=== PATIENT | female | born 1970 | race Two or more races ===

== ENCOUNTER → 2017-08-14 | Outpatient (CLI) | payer BC ==
[~2017-08-14] MED LIST: LEV50T PO
[2017-08-14 08:48] LABS: Urine RBC None Seen /hpf (0 - 4)
[2017-08-14 08:58] LABS: Basophils # (auto) 0 uL; Basophils % (auto) 0.6 % (0.0-2.0); Eosinophils # (auto) 0.2 uL; Hematocrit 42.1 % (36.0-46.0); Lymphocytes # (auto) 1.7 uL; Lymphocytes % (auto) 32.2 % (10.0-50.0); Mean Corpuscular Hgb Conc. 33.1 g/dL (32.0-36.0); Mean Corpuscular Volume 90.4 fL (80.0-100.0); Monocytes # (auto) 0.4 uL; Neutrophils # (auto) 2.9 uL; Neutrophils % (auto) 56.2 % (37.0-80.0); Nucleated Red Blood Cells % 0.1 %; Platelet Count (auto) 266 10^3/uL (140-450); White Blood Cell 5.2 10^3/uL (4.4-10.8)
[2017-08-14 09:20] LABS: Urine Bilirubin Negative (Negative); Urine Blood Negative /uL (Negative); Urine Color Yellow (Yellow); Urine Glucose Normal (Normal); Urine Ketone Negative (Negative); Urine Mucus FEW (None Seen); Urine Nitrite Negative (Negative); Urine Squamous Epithelial Cell FEW /hpf (<5); Urine Urobilinogen Normal (Negative); Urine pH 5.5 (5.0-8.0)
[2017-08-14 09:28] LABS: Albumin 3.5 g/dL (3.4-5.0); BUN/Creatinine Ratio 15.6; Bilirubin, Total 0.4 mg/dL (0.2-1.0); Calcium 8.2 mg/dL (8.5-10.1); Potassium 3.8 mmol/L (3.5-5.1); Total Protein 7.3 g/dL (6.4-8.2)
== END | disposition home or self-care (01) ==
LOC: LAB 08:13
PROVIDERS: ATTEND Internal Medicine
DX: I10 Essential (primary) hypertension (principal); N39.0 Urinary tract infection, site not specified; E03.9 Hypothyroidism, unspecified; E78.2 Mixed hyperlipidemia
CPT/HCPCS: 36415; 80053; 80061; 81001; 84443; 85025

== ENCOUNTER 2019-05-10 06:20 | Day surgery (SDC) | payer BC ==
[2019-05-06 11:36] LABS: Basophils # (auto) 0 uL; Basophils % (auto) 0.6 % (0.0-2.0); Eosinophils # (auto) 0.2 uL; Eosinophils % (auto) 3.2 % (0.0-7.0); Hematocrit 43.9 % (36.0-46.0); Hemoglobin 14.1 g/dL (12.2-16.2); Lymphocytes # (auto) 1.5 uL; Lymphocytes % (auto) 30.1 % (10.0-50.0); Mean Corpuscular Hemoglobin 29.2 pg (28.0-32.0); Mean Corpuscular Hgb Conc. 32.3 g/dL (32.0-36.0); Mean Corpuscular Volume 90.4 fL (80.0-100.0); Monocytes # (auto) 0.3 uL; Monocytes % (auto) 6.8 % (0.0-12.0); Neutrophils % (auto) 59.3 % (37.0-80.0); Nucleated Red Blood Cells % 0.1 %; Platelet Count (auto) 291 10^3/uL (140-450); Red Blood Cells 4.85 10^6/uL (4.0-5.20); Red Cell Distribution Width 13.5 % (11.8-14.3)
[2019-05-06 11:49] LABS: Albumin 3.5 g/dL (3.4-5.0); BUN/Creatinine Ratio 16.7; Calcium 8.5 mg/dL (8.5-10.1); Potassium 4.4 mmol/L (3.5-5.1)
[2019-05-06 11:52] LABS: Bilirubin, Total 0.4 mg/dL (0.2-1.0); Total Protein 7.5 g/dL (6.4-8.2)
[2019-05-06 12:09] LABS: INR < 0.93 (0.9-1.15); Partial Thromboplastin Time 25.9 sec (23.64-32.05)
[2019-05-06 12:34] LABS: Urine Bacteria NONE SEEN /hpf (None Seen); Urine Blood 2+ /uL (Negative); Urine Specific Gravity 1.012 (1.001-1.035); Urine WBC 21 /hpf (0 - 5)
[~2019-05-10] VITALS: Ht 177.8 cm; Wt 99.8 kg
[~2019-05-10 06:20] MED LIST changes: -LEV50T PO; +LEVO25TA6 PO
[2019-05-10] MEDS ORDERED: ceFAZolin 1GM/50ML 50 ML IV ONE (07:07)
[2019-05-10] MEDS ORDERED: ceFAZolin 1GM VL ONE (07:11)
[2019-05-10] MEDS ORDERED: MIDAZOLAM HCL 1MG/1ML-2 ML VIAL ONE (07:32)
[2019-05-10] MEDS ORDERED: fentaNYL CITRATE 100 MCG/2 ML VL ONE (07:32)
[2019-05-10] MEDS ORDERED: MEPERIDINE HCL (25 MG/ML) 1ML VIAL ONE ×2 (07:32→08:01)
[2019-05-10] MEDS ORDERED: DexAMETHasone SOD PHOS 10MG/1ML VIAL INJ ONE (07:59)
[2019-05-10] MEDS ORDERED: PROPOFOL 10 MG/ML 20 ML IV ONE (07:59)
[2019-05-10] MEDS ORDERED: ePHEDrine SULFATE 50 MG/ML AMP IV PRN (08:00)
[2019-05-10] MEDS ORDERED: ONDANSETRON HCL 4 MG/2 ML VIAL IV ONE (08:00)
[2019-05-10] MEDS ORDERED: MORPHINE SULFATE 4 MG/ML SYR/VIAL IV ONE (08:00)
[2019-05-10] MEDS ORDERED: METOCLOPRAMIDE HCL 5MG/ml INJ 2ml VIAL IV ONE (08:00)
[2019-05-10] MEDS ORDERED: HYDROmorphone HCL 2 MG/ML VL IV PRN (08:00)
[2019-05-10] MEDS ORDERED: MIDAZOLAM HCL 1MG/1ML-2 ML VIAL IV PRN (08:00)
[2019-05-10] MEDS ORDERED: KETOROLAC TROMETH 15 mg/ml 1ML VL IV ONE (08:00)
[2019-05-10] MEDS ORDERED: LABETALOL HCL 5 MG/ML 4ML SYRINGE IV PRN (08:00)
[2019-05-10] MEDS ORDERED: ONDANSETRON HCL 4 MG/2 ML VIAL ONE (08:07)
[2019-05-10] MEDS ORDERED: KETOROLAC TROMETH 30 MG/ML 1ML VIAL ONE (08:07)
[2019-05-10] MEDS ORDERED: PHENYLEPHRINE HCL 10 MG/ML VL ONE (08:37)
[2019-05-13 09:31] VITALS: BP 127/67
== END 2019-05-10 10:46 | disposition home or self-care (01) ==
LOC: SUR 06:20
PROVIDERS: ATTEND Surgery Pediatric Surgery
DX: I83.892 Varicose veins of left lower extremity with other complications (principal); E66.8 Other obesity; E89.0 Postprocedural hypothyroidism; Z79.899 Other long term (current) drug therapy; Z68.31 Body mass index [BMI] 31.0-31.9, adult; Z98.890 Other specified postprocedural states
CPT/HCPCS: 36415; 37735; 80053; 81001; 84702; 85025; 85610; 85730; 88304; J0690; J1100; J1885; J2175; J2250; J2370; J2405; J2704; J3010

== ENCOUNTER 2020-01-03 19:34 | Emergency (ER) | payer BC ==
[~2020-01-03] VITALS: Ht 177.8 cm; Wt 93.0 kg
[2020-01-03 20:45] LABS: Urine WBC None Seen /hpf (0 - 5)
[2020-01-03 21:01] LABS: Urine Bacteria NONE SEEN /hpf (None Seen); Urine Blood Negative /uL (Negative); Urine Specific Gravity 1.008 (1.001-1.035)
[2020-01-03 21:35] LABS: Basophils # (auto) 0 uL; Basophils % (auto) 0.4 % (0.0-2.0); Eosinophils # (auto) 0.1 uL; Eosinophils % (auto) 1.4 % (0.0-7.0); Hematocrit 43.8 % (36.0-46.0); Hemoglobin 14.3 g/dL (12.2-16.2); Lymphocytes # (auto) 2.1 uL; Lymphocytes % (auto) 24.7 % (10.0-50.0); Mean Corpuscular Hemoglobin 29.2 pg (28.0-32.0); Mean Corpuscular Hgb Conc. 32.6 g/dL (32.0-36.0); Mean Corpuscular Volume 89.5 fL (80.0-100.0); Monocytes # (auto) 0.5 uL; Monocytes % (auto) 6.3 % (0.0-12.0); Neutrophils # (auto) 5.8 uL; Neutrophils % (auto) 67.2 % (37.0-80.0); Nucleated Red Blood Cells % 0.1 %; Platelet Count (auto) 302 10^3/uL (140-450); Red Blood Cells 4.89 10^6/uL (4.0-5.20); Red Cell Distribution Width 13.6 % (11.8-14.3); White Blood Cell 8.7 10^3/uL (4.4-10.8)
[2020-01-03 21:51] LABS: INR 0.94 (0.9-1.15); Partial Thromboplastin Time 25.3 sec (23.64-32.05)
[2020-01-03 21:52] LABS: Albumin 3.8 g/dL (3.4-5.0); Anion Gap 5 (5-15); Blood Urea Nitrogen 11 mg/dL (7-18); Calcium 8.4 mg/dL (8.5-10.1); Carbon Dioxide 27 mmol/L (21-32); Chloride 104 mmol/L (98-107); Glucose 91 mg/dL (74-106); Magnesium 2.3 mg/dL (1.6-2.6); Potassium 3.5 mmol/L (3.5-5.1); Sodium 136 mmol/L (136-145)
[2020-01-03 22:00] LABS: Alanine Aminotransferase 16 U/L (13-56); Alkaline Phosphatase 88 U/L (45-117); Aspartate Aminotransferase 10 U/L (15-37); BUN/Creatinine Ratio 15.5; Bilirubin, Total 0.3 mg/dL (0.2-1.0); GFR African American 113 mL/min; GFR Non-African American 94 mL/min; Total Protein 7.9 g/dL (6.4-8.2)
[2020-01-04] MEDS ORDERED: MECLIZINE HCL 25 MG TAB PO ONE (01:45)
[2020-01-04 03:11] VITALS: BP 115/69
== END 2020-01-04 03:13 | disposition home or self-care (01) ==
LOC: ER 19:35 → MERGE 19:35 → ER 01-04 03:13
DX: R42 Dizziness and giddiness (principal)
CPT/HCPCS: 36415; 70450; 71046; 80053; 81001; 83735; 83880; 84484; 85025; 85610; 85730; 93005; 99285; J8597

== ENCOUNTER 2020-01-24 10:41 | Inpatient (IN) | payer BC ==
[~2020-01-24] VITALS: Ht 165.1 cm; Wt 90.9 kg
[2020-01-24 11:47] VITALS: BP 115/68
[2020-01-24] MEDS ORDERED: GADOTERIDOL 279.3mg/mL 20ml Vial IV ONE (12:36)
[2020-01-24 13:00] VITALS: BP 115/68
[2020-01-24] MEDS ORDERED: ONDANSETRON HCL 4 MG/2 ML VIAL IV ONE (15:00)
[2020-01-24 15:10] LABS: Basophils # (auto) 0 10 ^3/uL (0-0.2); Basophils % (auto) 0.5 % (0.0-2.0); Eosinophils # (auto) 0.1 10 ^3/uL (0-0.8); Eosinophils % (auto) 0.9 % (0.0-7.0); Hematocrit 41.6 % (36.0-46.0); Hemoglobin 13.9 g/dL (12.2-16.2); Lymphocytes # (auto) 1.1 10 ^3/uL (0.4-5.4); Lymphocytes % (auto) 17.8 % (10.0-50.0); Mean Corpuscular Hemoglobin 30.3 pg (28.0-32.0); Mean Corpuscular Hgb Conc. 33.5 g/dL (32.0-36.0); Mean Corpuscular Volume 90.4 fL (80.0-100.0); Monocytes # (auto) 0.3 10 ^3/uL (0-1.3); Monocytes % (auto) 5.7 % (0.0-12.0); Neutrophils # (auto) 4.5 10 ^3/uL (1.6-8.6); Neutrophils % (auto) 75.1 % (37.0-80.0); Platelet Count (auto) 305 10^3/uL (140-450)
[2020-01-24 15:26] LABS: Albumin 3.7 g/dL (3.4-5.0); BUN/Creatinine Ratio 16.7; Calcium 8.3 mg/dL (8.5-10.1); Potassium 3.6 mmol/L (3.5-5.1)
[2020-01-24 15:29] LABS: Bilirubin, Total 0.4 mg/dL (0.2-1.0); Total Protein 7.4 g/dL (6.4-8.2)
[2020-01-24] MEDS ORDERED: PANTOPRAZOLE 40 MG TAB PO ONE (17:45)
[2020-01-24] MEDS: methylPREDNISolone SOD SUCC 1,000 MG in SODIUM CHL 0.9% 250 ML IV SCH (18:33)
[2020-01-24 22:00] VITALS: BP 117/70
[2020-01-24 23:14] LABS: Folate (Folic Acid) 8.34 ng/mL (5.38-24)
[2020-01-25 05:00] VITALS: BP 105/66
[2020-01-25] MEDS: LEVOTHYROXINE SODIUM 25 MCG TAB PO SCH (06:00)
[2020-01-25 09:00] VITALS: BP 101/72
[2020-01-25 09:17] LABS: Urine Bacteria NONE SEEN /hpf (None Seen); Urine Blood 1+ /uL (Negative); Urine Mucus FEW (None Seen); Urine Specific Gravity 1.028 (1.001-1.035); Urine WBC 2 /hpf (0 - 5)
[2020-01-25] MEDS: ENOXAPARIN SOD 40 MG/0.4 ML SYRINGE SC SCH (11:31)
[2020-01-25] MEDS: PANTOPRAZOLE 40 MG TAB PO SCH (11:31)
[2020-01-25 13:00] VITALS: BP 111/70
[2020-01-25] MEDS ORDERED: methylPREDNISolone SOD SUCC 125 MG/2 ML VL IV SCH (14:00)
[2020-01-25] MEDS: methylPREDNISolone SOD SUCC 1,000 MG in SODIUM CHL 0.9% 250 ML IV SCH (14:49)
[2020-01-25 17:00] VITALS: BP 109/59
[2020-01-25 22:00] VITALS: BP 108/69
[2020-01-26 05:00] VITALS: BP 111/69
[2020-01-26] MEDS: LEVOTHYROXINE SODIUM 25 MCG TAB PO SCH (06:18)
[2020-01-26 07:28] LABS: BUN/Creatinine Ratio 21.3; Calcium 8.4 mg/dL (8.5-10.1); Potassium 4.2 mmol/L (3.5-5.1)
[2020-01-26 09:00] VITALS: BP 111/70
[2020-01-26] MEDS: ENOXAPARIN SOD 40 MG/0.4 ML SYRINGE SC SCH (09:25)
[2020-01-26] MEDS: PANTOPRAZOLE 40 MG TAB PO SCH (09:25)
[2020-01-26 13:00] VITALS: BP 128/62
[2020-01-26] MEDS: methylPREDNISolone SOD SUCC 1,000 MG in SODIUM CHL 0.9% 250 ML IV SCH (13:57)
[2020-01-26 16:44] VITALS: BP 114/69
[2020-01-26] MEDS ORDERED: TEMAZEPAM 15 MG CAP PO ONE (22:15)
[2020-01-26 23:44] VITALS: BP 117/71
[2020-01-27 05:00] VITALS: BP 118/71
[2020-01-27] MEDS: LEVOTHYROXINE SODIUM 25 MCG TAB PO SCH (07:07)
[2020-01-27 08:00] VITALS: BP 112/67
[2020-01-27 09:06] VITALS: BP 112/67
[2020-01-27] MEDS ORDERED: levoFLOXacin 750MG 150 ML IV ONE (09:15)
[2020-01-27] MEDS ORDERED: levoFLOXacin 750MG 150 ML IV SCH (10:00)
[2020-01-27] MEDS ORDERED: DEXTROSE (50%) 50ML SYRG IV PRN (10:30)
[2020-01-27] MEDS ORDERED: ACETAMINOPHEN 325 MG TAB PO PRN (10:30)
[2020-01-27] MEDS: PANTOPRAZOLE 40 MG TAB PO SCH (10:37)
[2020-01-27] MEDS: ENOXAPARIN SOD 40 MG/0.4 ML SYRINGE SC SCH (10:38)
[2020-01-27] MEDS: InsuLIN REG 1unit/0.01ml Soln (100units/ml) SC SCH ×3 (11:30→21:18)
[2020-01-27] MEDS: ACCU-CHEK COMFORT CURVE STRIP VI SCH ×3 (12:26→21:21)
[2020-01-27 12:30] VITALS: BP 106/61
[2020-01-27] MEDS: methylPREDNISolone SOD SUCC 1,000 MG in SODIUM CHL 0.9% 250 ML IV SCH (14:55)
[2020-01-27 16:48] VITALS: BP 130/74
[2020-01-27 22:00] VITALS: BP 113/77
[2020-01-28 05:00] VITALS: BP 110/70
[2020-01-28] MEDS: LEVOTHYROXINE SODIUM 25 MCG TAB PO SCH (06:32)
[2020-01-28] MEDS: ACCU-CHEK COMFORT CURVE STRIP VI SCH ×3 (06:33→17:00)
[2020-01-28] MEDS: InsuLIN REG 1unit/0.01ml Soln (100units/ml) SC SCH ×3 (06:33→17:00)
[2020-01-28 09:00] VITALS: BP 127/72
[2020-01-28] MEDS: PANTOPRAZOLE 40 MG TAB PO SCH (09:50)
[2020-01-28] MEDS: ENOXAPARIN SOD 40 MG/0.4 ML SYRINGE SC SCH (09:50)
[2020-01-28 13:00] VITALS: BP 119/75
[2020-01-28 16:02] VITALS: BP 119/75
[2020-01-28 17:03] VITALS: BP 131/73
[2020-01-29] MEDS ORDERED: levoFLOXacin 750MG 150 ML IV SCH (09:15)
== END 2020-01-28 18:00 | disposition home or self-care (01) | DRG 58 ==
LOC: TELE-WESTW 11:18 → WEST WING 01-27 09:13
PROVIDERS: ADMIT Internal Medicine; ATTEND Internal Medicine
DX: G35 Multiple sclerosis (principal); I63.9 Cerebral infarction, unspecified; E03.9 Hypothyroidism, unspecified; F41.9 Anxiety disorder, unspecified; H51.20 Internuclear ophthalmoplegia, unspecified eye; H55.09 Other forms of nystagmus; M48.02 Spinal stenosis, cervical region; T38.0X5A Adverse effect of glucocorticoids and synthetic analogues, initial encounter; R27.0 Ataxia, unspecified; Z86.73 Personal history of transient ischemic attack (TIA), and cerebral infarction without residual deficits; Y92.89 Other specified places as the place of occurrence of the external cause; H55.00 Unspecified nystagmus; H53.2 Diplopia
CPT/HCPCS: 36415; 71046; 72142; 72147; 80048; 80053; 81001; 82164; 82607; 82746; 82962; 84132; 85025; 85613; 85652; 85670; 85705; 85732; 86038; 86431; 97116; 97163; 97530; G0378; J1815; J2405

== ENCOUNTER → 2020-04-28 | Outpatient (CLI) | payer BC ==
[2020-04-28 09:03] LABS: Basophils # (auto) 0 10 ^3/uL (0-0.2); Basophils % (auto) 0.4 % (0.0-2.0); Eosinophils # (auto) 0.3 10 ^3/uL (0-0.8); Eosinophils % (auto) 4.6 % (0.0-7.0); Hematocrit 41.4 % (36.0-46.0); Hemoglobin 13.8 g/dL (12.2-16.2); Lymphocytes # (auto) 1.3 10 ^3/uL (0.4-5.4); Lymphocytes % (auto) 20.1 % (10.0-50.0); Mean Corpuscular Hemoglobin 30.3 pg (28.0-32.0); Mean Corpuscular Hgb Conc. 33.5 g/dL (32.0-36.0); Mean Corpuscular Volume 90.4 fL (80.0-100.0); Monocytes # (auto) 0.4 10 ^3/uL (0-1.3); Monocytes % (auto) 6.3 % (0.0-12.0); Neutrophils # (auto) 4.3 10 ^3/uL (1.6-8.6); Neutrophils % (auto) 68.6 % (37.0-80.0); Platelet Count (auto) 296 10^3/uL (140-450); Red Blood Cells 4.58 10^6/uL (4.0-5.20); Red Cell Distribution Width 13.1 % (11.8-14.3); White Blood Cell 6.2 10^3/uL (4.4-10.8)
[2020-04-28 09:39] LABS: Potassium 3.7 mmol/L (3.5-5.1)
[2020-04-28 09:46] LABS: Albumin 3.5 g/dL (3.4-5.0); BUN/Creatinine Ratio 17.6; Bilirubin, Total 0.6 mg/dL (0.2-1.0); Calcium 8.2 mg/dL (8.5-10.1)
== END | disposition home or self-care (01) ==
LOC: LAB 08:38
PROVIDERS: ATTEND Psychiatry & Neurology Neurology
DX: I05.0 Rheumatic mitral stenosis (principal)
CPT/HCPCS: 36415; 80053; 85025

== ENCOUNTER → 2020-06-29 | Outpatient (CLI) | payer BC ==
[2020-06-29 17:08] LABS: Basophils # (auto) 0 10 ^3/uL (0-0.2); Basophils % (auto) 0.5 % (0.0-2.0); Eosinophils # (auto) 0.2 10 ^3/uL (0-0.8); Hematocrit 41.4 % (36.0-46.0); Hemoglobin 13.6 g/dL (12.2-16.2); Lymphocytes # (auto) 1.6 10 ^3/uL (0.4-5.4); Lymphocytes % (auto) 24.1 % (10.0-50.0); Mean Corpuscular Hemoglobin 29.4 pg (28.0-32.0); Mean Corpuscular Hgb Conc. 32.8 g/dL (32.0-36.0); Mean Corpuscular Volume 89.6 fL (80.0-100.0); Monocytes # (auto) 0.5 10 ^3/uL (0-1.3); Neutrophils # (auto) 4.3 10 ^3/uL (1.6-8.6); Neutrophils % (auto) 65.4 % (37.0-80.0); Platelet Count (auto) 276 10^3/uL (140-450); Red Blood Cells 4.62 10^6/uL (4.0-5.20); Red Cell Distribution Width 13.6 % (11.8-14.3); White Blood Cell 6.6 10^3/uL (4.4-10.8)
[2020-06-29 17:21] LABS: Albumin 3.6 g/dL (3.4-5.0); Calcium 8.2 mg/dL (8.5-10.1)
[2020-06-29 17:24] LABS: BUN/Creatinine Ratio 20.3; Bilirubin, Total 0.3 mg/dL (0.2-1.0); Total Protein 7.2 g/dL (6.4-8.2)
[2020-06-30 11:34] LABS: Urine Amorphous Crystal MANY /hpf (None Seen); Urine Bacteria MOD /hpf (None Seen); Urine Blood Negative /uL (Negative); Urine Mucus FEW (None Seen); Urine Specific Gravity 1.013 (1.001-1.035); Urine WBC 21 /hpf (0 - 5)
== END | disposition home or self-care (01) ==
LOC: LAB 16:45
PROVIDERS: ATTEND Internal Medicine
DX: G35 Multiple sclerosis (principal); R10.9 Unspecified abdominal pain
CPT/HCPCS: 36415; 80053; 81001; 82150; 83690; 84439; 84443; 85025; 85652

== ENCOUNTER → 2020-07-03 | Outpatient (CLI) | payer BC ==
[2020-07-03 14:30] LABS: Urine Bacteria MOD /hpf (None Seen); Urine Blood 1+ /uL (Negative); Urine Mucus FEW (None Seen); Urine Specific Gravity 1.022 (1.001-1.035); Urine WBC 126 /hpf (0 - 5)
== END | disposition home or self-care (01) ==
LOC: LAB 13:49
PROVIDERS: ATTEND Internal Medicine
DX: G31.9 Degenerative disease of nervous system, unspecified (principal); R10.9 Unspecified abdominal pain
CPT/HCPCS: 81001; 87086

== ENCOUNTER → 2021-06-30 | Outpatient (CLI) | payer MEDICAID | END | disposition home or self-care (01) | LOC: LAB 09:02 | PROVIDERS: ATTEND Internal Medicine | DX: Z20.822 Contact with and (suspected) exposure to COVID-19 (principal) | CPT/HCPCS: C9803; U0003 ==

== ENCOUNTER 2021-09-24 09:58 | Inpatient (IN) | payer MEDICAID ==
[~2021-09-24] VITALS: Ht 177.8 cm; Wt 115.3 kg
[2021-09-24] VITALS (11 sets, daily range): BP systolic 95–115; BP diastolic 41–74
[~2021-09-24 09:58] MED LIST changes: +ACETAMINOPHEN 325 MG TAB PO ONE
[2021-09-24] MEDS ORDERED: REGENERON 1200mg/250ml NS 250 ML IV ONE (10:30)
[2021-09-24] MEDS ORDERED: ONDANSETRON HCL 4 MG/2 ML VIAL ONE (11:26)
[2021-09-24] MEDS ORDERED: ONDANSETRON HCL 4 MG/2 ML VIAL IV ONE (11:45)
[2021-09-24] MEDS ORDERED: DOCUSATE SOD 100 MG CAP PO PRN (14:00)
[2021-09-24] MEDS ORDERED: ACETAMINOPHEN 500 MG TAB PO PRN (14:00)
[2021-09-24] MEDS ORDERED: HYDROmorphone HCL 2 MG/ML VL IV PRN (14:00)
[2021-09-24] MEDS ORDERED: MORPHINE SULFATE INJECTION 2 MG/ML SYRG IV PRN (14:00)
[2021-09-24] MEDS ORDERED: HYDROcodone-ACET 5/325MG TAB PO PRN (14:00)
[2021-09-24] MEDS ORDERED: REMDESIVIR PER PHARMACY 0 ML IV SCH (14:00)
[2021-09-24] MEDS ORDERED: ACETAMINOPHEN 325 MG TAB PO PRN (14:00)
[2021-09-24] MEDS ORDERED: NITROGLYCERIN 0.4 MG SL TAB SL PRN (14:00)
[2021-09-24] MEDS ORDERED: BACL10TA PO (14:34)
[2021-09-24] MEDS ORDERED: PREG150C PO (14:34)
[2021-09-24] MEDS ORDERED: DALF10TA3 PO (14:34)
[2021-09-24] MEDS: SODIUM CHLOR 0.9% PF (SALINE LOCK) 10ML VIAL/SYR IV SCH ×2 (14:35→21:03)
[2021-09-24 14:53] LABS: Basophils # (auto) 0 10 ^3/uL (0-0.2); Basophils % (auto) 0.2 % (0.0-2.0); Eosinophils # (auto) 0 10 ^3/uL (0-0.8); Hematocrit 39.2 % (36.0-46.0); Hemoglobin 12.9 g/dL (12.2-16.2); Lymphocytes # (auto) 0.3 10 ^3/uL (0.4-5.4); Lymphocytes % (auto) 10.2 % (10.0-50.0); Mean Corpuscular Hemoglobin 29.4 pg (28.0-32.0); Mean Corpuscular Volume 89.2 fL (80.0-100.0); Monocytes # (auto) 0.1 10 ^3/uL (0-1.3); Monocytes % (auto) 2.6 % (0.0-12.0); Neutrophils # (auto) 2.6 10 ^3/uL (1.6-8.6); Nucleated Red Blood Cells % 0.1 %; Red Blood Cells 4.39 10^6/uL (4.0-5.20); Red Cell Distribution Width 13.4 % (11.8-14.3)
[2021-09-24 15:02] LABS: Albumin 2.5 g/dL (3.4-5.0); BUN/Creatinine Ratio 9.9; Calcium 7.1 mg/dL (8.5-10.1); Potassium 3.3 mmol/L (3.5-5.1)
[2021-09-24 15:10] LABS: Bilirubin, Total 0.3 mg/dL (0.2-1.0); CRP High Sensitivity 11.3 mg/dL (< 0.3); Total Protein 5.9 g/dL (6.4-8.2)
[2021-09-24] MEDS: BACLOFEN 10 MG TAB PO SCH ×2 (15:48→20:48)
[2021-09-24] MEDS: CHOLECALCIFEROL (VITD3) 2,000 UNIT CAP/TAB PO SCH (15:48)
[2021-09-24] MEDS: DexAMETHasone SOD PHOS 10MG/1ML VIAL INJ IV SCH (15:48)
[2021-09-24] MEDS: ASCORBIC ACID 1,000 MG TAB PO SCH (15:48)
[2021-09-24] MEDS: AZITHROMYCIN 500MG/ 250ML 250 ML IV SCH (15:48)
[2021-09-24] MEDS: ZINC SULFATE 220mg CAP or TAB PO SCH (15:48)
[2021-09-24] MEDS: PREGABALIN CAPSULE 75 MG CAP PO SCH ×2 (15:49→21:03)
[2021-09-24] MEDS ORDERED: REMDESIVIR 200 MG in NS 210ml LOADING DOSE ADULT IV ONE (17:00)
[2021-09-24] MEDS: BUDESONIDE (INHALATION) 180 MCG IH IN SCH (19:23)
[2021-09-24] MEDS ORDERED: POTASSIUM CHL 20 Meq TABLET PO ONE (19:30)
[2021-09-24] MEDS: ALBUTEROL SULF HFA 90MCG INH 200DOSE IN PRN (20:44)
[2021-09-24] MEDS: ENOXAPARIN SOD 40 MG/0.4 ML SYRINGE SC SCH (21:04)
[2021-09-24] MEDS ORDERED: ONDANSETRON HCL 4 MG/2 ML VIAL IV PRN (23:00)
[2021-09-25] MEDS: BACLOFEN 10 MG TAB PO SCH ×4 (03:02→21:51)
[2021-09-25 05:00] VITALS: BP 107/65
[2021-09-25 05:53] LABS: Basophils # (auto) 0 10 ^3/uL (0-0.2); Eosinophils # (auto) 0 10 ^3/uL (0-0.8); Hematocrit 37.1 % (36.0-46.0); Hemoglobin 12.4 g/dL (12.2-16.2); Lymphocytes # (auto) 0.4 10 ^3/uL (0.4-5.4); Lymphocytes % (auto) 6.7 % (10.0-50.0); Mean Corpuscular Hemoglobin 29.6 pg (28.0-32.0); Mean Corpuscular Hgb Conc. 33.5 g/dL (32.0-36.0); Mean Corpuscular Volume 88.4 fL (80.0-100.0); Monocytes # (auto) 0.3 10 ^3/uL (0-1.3); Neutrophils # (auto) 4.7 10 ^3/uL (1.6-8.6); Neutrophils % (auto) 88.3 % (37.0-80.0); Nucleated Red Blood Cells % 0.1 %; Red Cell Distribution Width 13.6 % (11.8-14.3); White Blood Cell 5.3 10^3/uL (4.4-10.8)
[2021-09-25 06:11] LABS: Albumin 2.2 g/dL (3.4-5.0); Calcium 7.1 mg/dL (8.5-10.1); Potassium 3.9 mmol/L (3.5-5.1)
[2021-09-25 06:13] LABS: BUN/Creatinine Ratio 14.6; Bilirubin, Total 0.2 mg/dL (0.2-1.0); Total Protein 5.5 g/dL (6.4-8.2)
[2021-09-25] MEDS: SODIUM CHLOR 0.9% PF (SALINE LOCK) 10ML VIAL/SYR IV SCH ×3 (06:17→21:51)
[2021-09-25] MEDS: PREGABALIN CAPSULE 75 MG CAP PO SCH ×3 (06:23→21:51)
[2021-09-25 09:00] VITALS: BP 110/65
[2021-09-25] MEDS: ASCORBIC ACID 1,000 MG TAB PO SCH (09:31)
[2021-09-25] MEDS: CHOLECALCIFEROL (VITD3) 2,000 UNIT CAP/TAB PO SCH (09:31)
[2021-09-25] MEDS: ZINC SULFATE 220mg CAP or TAB PO SCH (09:31)
[2021-09-25] MEDS: DexAMETHasone SOD PHOS 10MG/1ML VIAL INJ IV SCH (09:31)
[2021-09-25] MEDS: ENOXAPARIN SOD 40 MG/0.4 ML SYRINGE SC SCH ×2 (09:32→21:52)
[2021-09-25] MEDS ORDERED: FUROSEMIDE 20 MG/2 ML VIAL IV ONE (10:45)
[2021-09-25] MEDS: AZITHROMYCIN 500MG/ 250ML 250 ML IV SCH (11:28)
[2021-09-25 13:00] VITALS: BP 97/58
[2021-09-25] MEDS: BUDESONIDE (INHALATION) 180 MCG IH IN SCH ×2 (14:49→21:36)
[2021-09-25] MEDS: ALBUTEROL SULF HFA 90MCG INH 200DOSE IN PRN ×2 (14:49→21:36)
[2021-09-25] MEDS ORDERED: DexAMETHasone SOD PHOS 4 MG/1ML SDV INJ IV ONE (15:00)
[2021-09-25] MEDS: PIPERACILLIN-TAZO 4.5GM 100 ML IV SCH ×2 (15:04→21:52)
[2021-09-25] MEDS: REMDESIVIR 100mg 100 MG in SODIUM CHL 0.9% 230 ML IV SCH (15:06)
[2021-09-25 17:00] VITALS: BP 104/63
[2021-09-25 22:00] VITALS: BP 100/54
[2021-09-26] MEDS: BACLOFEN 10 MG TAB PO SCH ×4 (04:29→21:29)
[2021-09-26 05:00] VITALS: BP 102/74
[2021-09-26] MEDS: PREGABALIN CAPSULE 75 MG CAP PO SCH ×3 (06:03→21:29)
[2021-09-26] MEDS: SODIUM CHLOR 0.9% PF (SALINE LOCK) 10ML VIAL/SYR IV SCH ×3 (06:03→21:29)
[2021-09-26] MEDS: LEVOTHYROXINE SODIUM 50 MCG TAB PO SCH (06:05)
[2021-09-26] MEDS: PIPERACILLIN-TAZO 4.5GM 100 ML IV SCH ×3 (06:05→21:29)
[2021-09-26] MEDS: BUDESONIDE (INHALATION) 180 MCG IH IN SCH ×2 (06:40→20:38)
[2021-09-26] MEDS: ALBUTEROL SULF HFA 90MCG INH 200DOSE IN PRN ×2 (06:40→20:38)
[2021-09-26 08:10] VITALS: BP 101/59
[2021-09-26 09:00] VITALS: BP 101/59
[2021-09-26] MEDS: ASCORBIC ACID 1,000 MG TAB PO SCH (09:32)
[2021-09-26] MEDS: CHOLECALCIFEROL (VITD3) 2,000 UNIT CAP/TAB PO SCH (09:32)
[2021-09-26] MEDS: ZINC SULFATE 220mg CAP or TAB PO SCH (09:32)
[2021-09-26] MEDS: DexAMETHasone SOD PHOS 10MG/1ML VIAL INJ IV SCH (09:33)
[2021-09-26] MEDS: ENOXAPARIN SOD 40 MG/0.4 ML SYRINGE SC SCH ×2 (09:33→21:30)
[2021-09-26] MEDS: AZITHROMYCIN 500MG/ 250ML 250 ML IV SCH (09:33)
[2021-09-26] MEDS ORDERED: FUROSEMIDE 40 MG/4 ML VIAL IV ONE (10:00)
[2021-09-26 13:00] VITALS: BP 110/70
[2021-09-26] MEDS: REMDESIVIR 100mg 100 MG in SODIUM CHL 0.9% 230 ML IV SCH (15:16)
[2021-09-26 17:00] VITALS: BP 112/75
[2021-09-26 22:00] VITALS: BP 110/69
[2021-09-26] MEDS ORDERED: TOCILIZUMAB 400 MG in SODIUM CHL 0.9% 80 ML IV SCH (22:00)
[2021-09-27] MEDS: BACLOFEN 10 MG TAB PO SCH ×4 (04:01→21:19)
[2021-09-27 05:00] VITALS: BP 122/62
[2021-09-27] MEDS: ALBUTEROL SULF HFA 90MCG INH 200DOSE IN PRN ×2 (05:58→20:14)
[2021-09-27] MEDS: BUDESONIDE (INHALATION) 180 MCG IH IN SCH ×2 (05:58→20:14)
[2021-09-27] MEDS: SODIUM CHLOR 0.9% PF (SALINE LOCK) 10ML VIAL/SYR IV SCH ×3 (06:38→21:19)
[2021-09-27] MEDS: PIPERACILLIN-TAZO 4.5GM 100 ML IV SCH ×3 (06:38→21:19)
[2021-09-27] MEDS: PREGABALIN CAPSULE 75 MG CAP PO SCH ×3 (06:39→21:18)
[2021-09-27] MEDS: LEVOTHYROXINE SODIUM 50 MCG TAB PO SCH (06:39)
[2021-09-27 07:03] LABS: Potassium 3.8 mmol/L (3.5-5.1)
[2021-09-27 07:22] LABS: Albumin 2.2 g/dL (3.4-5.0); BUN/Creatinine Ratio 27.8; Bilirubin, Total 0.3 mg/dL (0.2-1.0); CRP High Sensitivity 6.3 mg/dL (< 0.3); Calcium 7.5 mg/dL (8.5-10.1); Total Protein 5.5 g/dL (6.4-8.2)
[2021-09-27 09:00] VITALS: BP 109/54
[2021-09-27] MEDS: ENOXAPARIN SOD 40 MG/0.4 ML SYRINGE SC SCH ×2 (09:17→21:20)
[2021-09-27] MEDS: ZINC SULFATE 220mg CAP or TAB PO SCH (09:17)
[2021-09-27] MEDS: ASCORBIC ACID 1,000 MG TAB PO SCH (09:17)
[2021-09-27] MEDS: AZITHROMYCIN 500MG/ 250ML 250 ML IV SCH (09:18)
[2021-09-27] MEDS: DexAMETHasone SOD PHOS 10MG/1ML VIAL INJ IV SCH ×2 (09:18→21:19)
[2021-09-27] MEDS: CHOLECALCIFEROL (VITD3) 2,000 UNIT CAP/TAB PO SCH (09:18)
[2021-09-27] MEDS ORDERED: POTASSIUM CHL 20 Meq TABLET PO ONE (11:30)
[2021-09-27] MEDS ORDERED: FUROSEMIDE 20 MG/2 ML VIAL IV ONE (11:30)
[2021-09-27 12:52] VITALS: BP 100/69
[2021-09-27] MEDS: TOCILIZUMAB 400 MG in SODIUM CHL 0.9% 80 ML IV SCH ×2 (14:12→21:18)
[2021-09-27] MEDS: REMDESIVIR 100mg 100 MG in SODIUM CHL 0.9% 230 ML IV SCH (16:10)
[2021-09-27 16:40] VITALS: BP 107/68
[2021-09-27 22:00] VITALS: BP 99/66
[2021-09-28 00:57] VITALS: BP 107/68
[2021-09-28] MEDS: BACLOFEN 10 MG TAB PO SCH ×4 (02:23→22:05)
[2021-09-28 05:00] VITALS: BP 111/64
[2021-09-28] MEDS: PREGABALIN CAPSULE 75 MG CAP PO SCH ×3 (05:32→22:08)
[2021-09-28] MEDS: PIPERACILLIN-TAZO 4.5GM 100 ML IV SCH ×3 (05:32→22:08)
[2021-09-28] MEDS: SODIUM CHLOR 0.9% PF (SALINE LOCK) 10ML VIAL/SYR IV SCH ×3 (05:32→22:06)
[2021-09-28] MEDS: LEVOTHYROXINE SODIUM 50 MCG TAB PO SCH (05:32)
[2021-09-28 06:55] LABS: Basophils # (auto) 0 10 ^3/uL (0-0.2); Basophils % (auto) 0.1 % (0.0-2.0); Eosinophils # (auto) 0 10 ^3/uL (0-0.8); Hematocrit 39.5 % (36.0-46.0); Hemoglobin 13.3 g/dL (12.2-16.2); Lymphocytes # (auto) 0.3 10 ^3/uL (0.4-5.4); Lymphocytes % (auto) 10.5 % (10.0-50.0); Mean Corpuscular Hemoglobin 29.8 pg (28.0-32.0); Mean Corpuscular Hgb Conc. 33.7 g/dL (32.0-36.0); Mean Corpuscular Volume 88.4 fL (80.0-100.0); Monocytes # (auto) 0.3 10 ^3/uL (0-1.3); Monocytes % (auto) 9.6 % (0.0-12.0); Neutrophils # (auto) 2.7 10 ^3/uL (1.6-8.6); Neutrophils % (auto) 79.8 % (37.0-80.0); Red Blood Cells 4.47 10^6/uL (4.0-5.20); Red Cell Distribution Width 13.6 % (11.8-14.3); White Blood Cell 3.3 10^3/uL (4.4-10.8)
[2021-09-28 07:07] LABS: Potassium 4.2 mmol/L (3.5-5.1)
[2021-09-28 07:13] LABS: Albumin 2.2 g/dL (3.4-5.0); BUN/Creatinine Ratio 29.5; Bilirubin, Total 0.4 mg/dL (0.2-1.0); Calcium 7.7 mg/dL (8.5-10.1); Total Protein 5.6 g/dL (6.4-8.2)
[2021-09-28] MEDS: BUDESONIDE (INHALATION) 180 MCG IH IN SCH ×2 (07:20→19:51)
[2021-09-28] MEDS: ALBUTEROL SULF HFA 90MCG INH 200DOSE IN PRN ×2 (07:20→19:51)
[2021-09-28 09:00] VITALS: BP 117/75
[2021-09-28] MEDS: DexAMETHasone SOD PHOS 10MG/1ML VIAL INJ IV SCH (10:02)
[2021-09-28] MEDS: ENOXAPARIN SOD 40 MG/0.4 ML SYRINGE SC SCH ×2 (10:02→22:09)
[2021-09-28] MEDS: ZINC SULFATE 220mg CAP or TAB PO SCH (10:03)
[2021-09-28] MEDS: ASCORBIC ACID 1,000 MG TAB PO SCH (10:03)
[2021-09-28] MEDS: CHOLECALCIFEROL (VITD3) 2,000 UNIT CAP/TAB PO SCH (10:03)
[2021-09-28] MEDS: AZITHROMYCIN 500MG/ 250ML 250 ML IV SCH (10:03)
[2021-09-28] MEDS: POTASSIUM CHL 20 Meq TABLET PO SCH (10:03)
[2021-09-28] MEDS: FUROSEMIDE 20 MG/2 ML VIAL IV SCH (10:04)
[2021-09-28 13:00] VITALS: BP 99/65
[2021-09-28] MEDS: REMDESIVIR 100mg 100 MG in SODIUM CHL 0.9% 230 ML IV SCH (15:29)
[2021-09-28 17:00] VITALS: BP 127/97
[2021-09-28 21:56] VITALS: BP 103/65
[2021-09-29] MEDS: BACLOFEN 10 MG TAB PO SCH ×4 (02:42→21:20)
[2021-09-29 05:00] VITALS: BP 112/74
[2021-09-29] MEDS: SODIUM CHLOR 0.9% PF (SALINE LOCK) 10ML VIAL/SYR IV SCH ×3 (06:23→21:21)
[2021-09-29] MEDS: PREGABALIN CAPSULE 75 MG CAP PO SCH ×3 (06:23→21:15)
[2021-09-29] MEDS: PIPERACILLIN-TAZO 4.5GM 100 ML IV SCH ×3 (06:23→21:21)
[2021-09-29] MEDS: LEVOTHYROXINE SODIUM 50 MCG TAB PO SCH (06:24)
[2021-09-29] MEDS: BUDESONIDE (INHALATION) 180 MCG IH IN SCH ×2 (08:25→18:49)
[2021-09-29] MEDS: ALBUTEROL SULF HFA 90MCG INH 200DOSE IN PRN ×2 (08:25→18:49)
[2021-09-29 09:00] VITALS: BP 101/68
[2021-09-29] MEDS: DexAMETHasone SOD PHOS 10MG/1ML VIAL INJ IV SCH (09:19)
[2021-09-29] MEDS: ZINC SULFATE 220mg CAP or TAB PO SCH (09:19)
[2021-09-29] MEDS: CHOLECALCIFEROL (VITD3) 2,000 UNIT CAP/TAB PO SCH (09:20)
[2021-09-29] MEDS: ASCORBIC ACID 1,000 MG TAB PO SCH (09:20)
[2021-09-29] MEDS: ENOXAPARIN SOD 40 MG/0.4 ML SYRINGE SC SCH ×2 (09:20→21:27)
[2021-09-29] MEDS: POTASSIUM CHL 20 Meq TABLET PO SCH (09:20)
[2021-09-29] MEDS: FUROSEMIDE 20 MG/2 ML VIAL IV SCH (09:21)
[2021-09-29 11:43] VITALS: BP 101/68
[2021-09-29 13:00] VITALS: BP 103/70
[2021-09-29 17:00] VITALS: BP 114/76
[2021-09-29 22:00] VITALS: BP 115/72
[2021-09-30] MEDS: BACLOFEN 10 MG TAB PO SCH ×3 (04:17→15:17)
[2021-09-30 05:00] VITALS: BP 113/63
[2021-09-30 06:06] LABS: Calcium 7.6 mg/dL (8.5-10.1); Potassium 4.2 mmol/L (3.5-5.1)
[2021-09-30 06:08] LABS: BUN/Creatinine Ratio 27.8
[2021-09-30] MEDS: ALBUTEROL SULF HFA 90MCG INH 200DOSE IN PRN (06:09)
[2021-09-30] MEDS: BUDESONIDE (INHALATION) 180 MCG IH IN SCH (06:09)
[2021-09-30] MEDS: SODIUM CHLOR 0.9% PF (SALINE LOCK) 10ML VIAL/SYR IV SCH ×2 (06:41→13:50)
[2021-09-30] MEDS: PREGABALIN CAPSULE 75 MG CAP PO SCH ×2 (06:42→13:50)
[2021-09-30] MEDS: PIPERACILLIN-TAZO 4.5GM 100 ML IV SCH ×2 (06:42→13:50)
[2021-09-30] MEDS: LEVOTHYROXINE SODIUM 50 MCG TAB PO SCH (06:43)
[2021-09-30 09:00] VITALS: BP 112/76
[2021-09-30] MEDS: DexAMETHasone SOD PHOS 10MG/1ML VIAL INJ IV SCH (10:22)
[2021-09-30] MEDS: FUROSEMIDE 20 MG/2 ML VIAL IV SCH (10:24)
[2021-09-30] MEDS: ASCORBIC ACID 1,000 MG TAB PO SCH (10:25)
[2021-09-30] MEDS: ENOXAPARIN SOD 40 MG/0.4 ML SYRINGE SC SCH (10:25)
[2021-09-30] MEDS: ZINC SULFATE 220mg CAP or TAB PO SCH (10:25)
[2021-09-30] MEDS: CHOLECALCIFEROL (VITD3) 2,000 UNIT CAP/TAB PO SCH (10:25)
[2021-09-30] MEDS: POTASSIUM CHL 20 Meq TABLET PO SCH (10:25)
[2021-09-30 13:00] VITALS: BP 94/62
[2021-09-30 14:35] VITALS: BP 112/76
[2021-09-30 14:47] VITALS: BP 112/76
== END 2021-09-30 17:30 | disposition home or self-care (01) | DRG 720 ==
LOC: ER 09:58 → TELE-DOU 12:40 → TELE-EAST 13:10
PROVIDERS: ADMIT Internal Medicine; ATTEND Internal Medicine
PROC: XW033E5 Introduction of Remdesivir Anti-infective into Peripheral Vein, Percutaneous Approach, New Technology Group 5 (ICD-10-PCS; principal; 2021-09-24)
PROC: XW033H5 Introduction of Tocilizumab into Peripheral Vein, Percutaneous Approach, New Technology Group 5 (ICD-10-PCS; 2021-09-26)
DX: A41.89 Other specified sepsis (principal); J96.00 Acute respiratory failure, unspecified whether with hypoxia or hypercapnia; J12.82 Pneumonia due to coronavirus disease 2019; U07.1 COVID-19; D69.6 Thrombocytopenia, unspecified; G35 Multiple sclerosis; D89.839 Cytokine release syndrome, grade unspecified; E03.9 Hypothyroidism, unspecified; I50.22 Chronic systolic (congestive) heart failure
CPT/HCPCS: 36415; 36600; 71045; 71250; 80048; 80053; 82306; 82728; 82805; 83615; 83735; 83880; 84443; 85025; 85379; 86141; 87070; 87205; 93306; 94640; 97163; G0378; J1100; J2405; J2543

== ENCOUNTER → 2022-01-20 | Outpatient (CLI) | payer MEDICAID ==
[~2022-01-20] MED LIST changes: -ACETAMINOPHEN 325 MG TAB PO ONE; +BACL10TA PO; +DALF10TA3 PO; +PREG150C PO
== END | disposition home or self-care (01) ==
LOC: LAB 11:12
PROVIDERS: ATTEND Internal Medicine
DX: Z00.00 Encounter for general adult medical examination without abnormal findings (principal)
CPT/HCPCS: 82274

== ENCOUNTER → 2022-04-19 | Outpatient (CLI) | payer MEDICAID ==
[~2022-04-19] VITALS: Ht 177.8 cm; Wt 95.3 kg
[~2022-04-19] MED LIST changes: +ADENOSINE 80 MG in GIVE UN-DILUTED 0 ML IV STA
[2022-04-19 09:53] VITALS: BP 106/63
== END | disposition home or self-care (01) ==
LOC: XY 08:18
PROVIDERS: ATTEND Internal Medicine
DX: G35 Multiple sclerosis (principal); E03.9 Hypothyroidism, unspecified; J44.9 Chronic obstructive pulmonary disease, unspecified; I43 Cardiomyopathy in diseases classified elsewhere
CPT/HCPCS: 78452; 93017; A9500; J0153

== ENCOUNTER → 2022-08-22 | Outpatient (CLI) | payer MEDICAID ==
[~2022-08-22] MED LIST changes: -ADENOSINE 80 MG in GIVE UN-DILUTED 0 ML IV STA
[2022-08-22 08:16] LABS: Basophils # (auto) 0 10 ^3/uL (0-0.2); Basophils % (auto) 0.4 % (0.0-2.0); Eosinophils # (auto) 0.2 10 ^3/uL (0-0.8); Eosinophils % (auto) 3.6 % (0.0-7.0); Hematocrit 41.1 % (36.0-46.0); Hemoglobin 13.3 g/dL (12.2-16.2); Lymphocytes # (auto) 1.4 10 ^3/uL (0.4-5.4); Lymphocytes % (auto) 24.9 % (10.0-50.0); Mean Corpuscular Hemoglobin 28.9 pg (28.0-32.0); Mean Corpuscular Hgb Conc. 32.4 g/dL (32.0-36.0); Monocytes # (auto) 0.4 10 ^3/uL (0-1.3); Monocytes % (auto) 7.5 % (0.0-12.0); Neutrophils # (auto) 3.7 10 ^3/uL (1.6-8.6); Neutrophils % (auto) 63.6 % (37.0-80.0); Red Blood Cells 4.62 10^6/uL (4.0-5.20); White Blood Cell 5.8 10^3/uL (4.4-10.8)
[2022-08-22 08:18] LABS: Urine Bacteria MOD /hpf (None Seen); Urine Blood Negative /uL (Negative); Urine Specific Gravity 1.015 (1.001-1.035); Urine WBC 1 /hpf (0 - 5)
[2022-08-22 08:49] LABS: Cholesterol 185 mg/dL (< 200)
[2022-08-22 08:52] LABS: HDL Cholesterol 46 mg/dL (40-59); LDL Cholesterol 119 mg/dL (< 100); Triglycerides 91 mg/dL (< 150)
[2022-08-22 09:22] LABS: Free T4 (Free Thyroxine) 1.09 ng/dL (0.89-1.76)
== END | disposition home or self-care (01) ==
LOC: LAB 07:58
PROVIDERS: ATTEND Internal Medicine
DX: G35 Multiple sclerosis (principal); I42.9 Cardiomyopathy, unspecified
CPT/HCPCS: 36415; 80061; 81001; 82306; 82607; 82746; 83036; 84439; 84443; 85025

== ENCOUNTER → 2023-04-03 | Outpatient (CLI) | payer MEDICAID ==
[2023-04-03 14:47] LABS: Basophils # (auto) 0 10 ^3/uL (0-0.2); Basophils % (auto) 0.6 % (0.0-2.0); Eosinophils # (auto) 0.3 10 ^3/uL (0-0.8); Eosinophils % (auto) 4.7 % (0.0-7.0); Hematocrit 39.4 % (36.0-46.0); Hemoglobin 12.6 g/dL (12.2-16.2); Lymphocytes # (auto) 1.6 10 ^3/uL (0.4-5.4); Lymphocytes % (auto) 21.7 % (10.0-50.0); Mean Corpuscular Hgb Conc. 32.1 g/dL (32.0-36.0); Mean Corpuscular Volume 87.1 fL (80.0-100.0); Monocytes # (auto) 0.5 10 ^3/uL (0-1.3); Monocytes % (auto) 6.6 % (0.0-12.0); Neutrophils # (auto) 4.8 10 ^3/uL (1.6-8.6); Neutrophils % (auto) 66.4 % (37.0-80.0); Red Blood Cells 4.52 10^6/uL (4.0-5.20); Red Cell Distribution Width 14.2 % (11.8-14.3); White Blood Cell 7.3 10^3/uL (4.4-10.8)
[2023-04-03 15:43] LABS: Potassium 3.8 mmol/L (3.5-5.1)
[2023-04-03 15:50] LABS: Albumin 3.4 g/dL (3.4-5.0); BUN/Creatinine Ratio 13.6 (10.0-20.0); Bilirubin, Total 0.4 mg/dL (0.2-1.0); Calcium 8.2 mg/dL (8.5-10.1); Total Protein 6.8 g/dL (6.4-8.2)
[2023-04-03 15:59] LABS: Folate (Folic Acid) 17.77 ng/mL (5.38-24)
== END | disposition home or self-care (01) ==
LOC: LAB 14:04
PROVIDERS: ATTEND Internal Medicine
DX: G35 Multiple sclerosis (principal); M71.0 Abscess of bursa
CPT/HCPCS: 36415; 80053; 82306; 82607; 82746; 83036; 85025

== ENCOUNTER → 2023-06-28 | Outpatient (CLI) | payer MEDICAID ==
[~2023-06-28] MED LIST changes: +DALF10TA2 PO; -DALF10TA3 PO
[2023-06-28 10:32] LABS: Basophils # (auto) 0 10 ^3/uL (0-0.2); Basophils % (auto) 0.5 % (0.0-2.0); Eosinophils # (auto) 0.2 10 ^3/uL (0-0.8); Eosinophils % (auto) 3.8 % (0.0-7.0); Hematocrit 40.4 % (36.0-46.0); Hemoglobin 13.2 g/dL (12.2-16.2); Lymphocytes # (auto) 1.2 10 ^3/uL (0.4-5.4); Lymphocytes % (auto) 21.3 % (10.0-50.0); Mean Corpuscular Hemoglobin 28.4 pg (28.0-32.0); Mean Corpuscular Hgb Conc. 32.7 g/dL (32.0-36.0); Mean Corpuscular Volume 86.7 fL (80.0-100.0); Monocytes # (auto) 0.5 10 ^3/uL (0-1.3); Monocytes % (auto) 8.2 % (0.0-12.0); Neutrophils # (auto) 3.8 10 ^3/uL (1.6-8.6); Neutrophils % (auto) 66.2 % (37.0-80.0); Nucleated Red Blood Cells % 0.1 %; Red Blood Cells 4.66 10^6/uL (4.0-5.20); Red Cell Distribution Width 14.4 % (11.8-14.3); White Blood Cell 5.7 10^3/uL (4.4-10.8)
[2023-06-28 11:04] LABS: Leuteinizing Hormone 3.6 IU/L; Prolactin 35.49 ng/mL (2.8-29.2)
[2023-06-28 11:05] LABS: Follicle Stimulating Hormone 3.68 IU/L (SEE BELOW)
== END | disposition home or self-care (01) ==
LOC: LAB 10:10
PROVIDERS: ATTEND Obstetrics & Gynecology
DX: N93.9 Abnormal uterine and vaginal bleeding, unspecified (principal)
CPT/HCPCS: 36415; 82670; 83001; 83002; 84144; 84146; 84403; 84443; 85025

== ENCOUNTER → 2024-03-19 | Outpatient (CLI) | payer BC ==
[~2024-03-19] MED LIST changes: +DALF10TA PO; -DALF10TA2 PO
[2024-03-19 07:26] LABS: Basophils # (auto) 0 10 ^3/uL (0-0.2); Basophils % (auto) 0.9 % (0.0-2.0); Eosinophils # (auto) 0.3 10 ^3/uL (0-0.8); Eosinophils % (auto) 6.8 % (0.0-7.0); Hemoglobin 11.5 g/dL (12.2-16.2); Lymphocytes # (auto) 1.5 10 ^3/uL (0.4-5.4); Mean Corpuscular Hemoglobin 26.3 pg (28.0-32.0); Mean Corpuscular Hgb Conc. 31.9 g/dL (32.0-36.0); Mean Corpuscular Volume 82.6 fL (80.0-100.0); Monocytes # (auto) 0.4 10 ^3/uL (0-1.3); Monocytes % (auto) 7.8 % (0.0-12.0); Neutrophils # (auto) 2.8 10 ^3/uL (1.6-8.6); Neutrophils % (auto) 55.5 % (37.0-80.0); Red Blood Cells 4.36 10^6/uL (4.0-5.20); Red Cell Distribution Width 15.4 % (11.8-14.3); White Blood Cell 5.1 10^3/uL (4.4-10.8)
[2024-03-19 08:18] LABS: Alanine Aminotransferase 15 U/L (7-40); Albumin 4.2 g/dL (3.2-4.8); Alkaline Phosphatase 73 U/L (46-116); Anion Gap 6 (5-15); Aspartate Aminotransferase 19 U/L (13-40); BUN/Creatinine Ratio 13.9 (10.0-20.0); Bilirubin, Total 0.6 mg/dL (0.2-1.0); Blood Urea Nitrogen 10 mg/dL (9-23); Calcium 8.8 mg/dL (8.5-10.1); Carbon Dioxide 28 mmol/L (20-30); Chloride 108 mmol/L (98-107); Cholesterol 207 mg/dL (< 200); Glucose 94 mg/dL (74-106); HDL Cholesterol 45 mg/dL (40-59); LDL Cholesterol 146 mg/dL (< 100); Sodium 142 mmol/L (136-145); Total Protein 6.9 g/dL (5.7-8.2); Triglycerides 122 mg/dL (< 150)
== END | disposition home or self-care (01) ==
LOC: LAB 07:14
PROVIDERS: ATTEND Internal Medicine
DX: I11.0 Hypertensive heart disease with heart failure (principal); I50.22 Chronic systolic (congestive) heart failure; I42.8 Other cardiomyopathies
CPT/HCPCS: 36415; 80053; 80061; 85025

== ENCOUNTER → 2024-05-09 | Outpatient (CLI) | payer BC | END | disposition home or self-care (01) | LOC: XYW 13:00 | PROVIDERS: ATTEND Internal Medicine | DX: I51.89 Other ill-defined heart diseases (principal); I50.22 Chronic systolic (congestive) heart failure | CPT/HCPCS: 93306 ==

== ENCOUNTER → 2025-01-13 | Outpatient (CLI) | payer BC ==
[2025-01-13 08:18] LABS: Basophils # (auto) 0 10 ^3/uL (0-0.2); Eosinophils # (auto) 0.2 10 ^3/uL (0-0.8); Hemoglobin 10.7 g/dL (12.2-16.2); Lymphocytes # (auto) 1.4 10 ^3/uL (0.4-5.4); Neutrophils # (auto) 2.5 10 ^3/uL (1.6-8.6); Nucleated Red Blood Cells % 0.1 %
[2025-01-13 08:21] LABS: Basophils % (auto) 0.3 % (0.0-2.0); Eosinophils % (auto) 4.2 % (0.0-7.0); Hematocrit 33.3 % (36.0-46.0); Lymphocytes % (auto) 30.6 % (10.0-50.0); Mean Corpuscular Hemoglobin 24.7 pg (28.0-32.0); Mean Corpuscular Hgb Conc. 32.1 g/dL (32.0-36.0); Mean Corpuscular Volume 77.1 fL (80.0-100.0); Monocytes # (auto) 0.4 10 ^3/uL (0-1.3); Monocytes % (auto) 9.4 % (0.0-12.0); Neutrophils % (auto) 55.5 % (37.0-80.0); Platelet Count (auto) 293 10^3/uL (140-450); Red Blood Cells 4.32 10^6/uL (4.0-5.20); Red Cell Distribution Width 16.9 % (11.8-14.3); White Blood Cell 4.5 10^3/uL (4.4-10.8)
[2025-01-13 08:29] LABS: Alanine Aminotransferase 22 U/L (7-40); Alkaline Phosphatase 72 U/L (46-116); Anion Gap 7 (5-15); Blood Urea Nitrogen 13 mg/dL (9-23); Calcium 9.1 mg/dL (8.7-10.4); Carbon Dioxide 28 mmol/L (20-31); Glucose 98 mg/dL (74-106); Potassium 4.2 mmol/L (3.5-5.1); Sodium 142 mmol/L (136-145); Triglycerides 111 mg/dL (< 150)
[2025-01-13 08:30] LABS: Albumin 4.4 g/dL (3.2-4.8); Bilirubin, Total 0.5 mg/dL (0.2-1.0); Cholesterol 196 mg/dL (< 200); HDL Cholesterol 45 mg/dL (40-59)
[2025-01-13 08:31] LABS: Total Protein 6.8 g/dL (5.7-8.2)
[2025-01-13 08:32] LABS: Aspartate Aminotransferase 12 U/L (13-40); Chloride 107 mmol/L (98-107); LDL Cholesterol 137 mg/dL (< 100)
[2025-01-13 11:24] LABS: Free T3 3.19 pg/mL (2.3-4.2)
[2025-01-13 11:26] LABS: Free T4 (Free Thyroxine) 1.2 ng/dL (0.89-1.76)
[2025-01-14 10:27] LABS: Urine Bacteria None Seen /hpf (None Seen)
[2025-01-14 11:01] LABS: Urine Blood Negative /uL (Negative); Urine Clarity Clear (Clear); Urine Color Light-Yellow (Yellow); Urine Protein, UAD Negative (Negative); Urine Specific Gravity 1.012 (1.001-1.035); Urine Squamous Epithelial Cell FEW /hpf (<5); Urine Urobilinogen Normal (Negative); Urine WBC 3 /HPF (0-5)
== END | disposition home or self-care (01) ==
LOC: LAB 07:36
PROVIDERS: ATTEND Internal Medicine
DX: E55.9 Vitamin D deficiency, unspecified (principal); E03.9 Hypothyroidism, unspecified; G35 Multiple sclerosis; Z92.25 Personal history of immunosuppression therapy
CPT/HCPCS: 36415; 80053; 80061; 81001; 82306; 84439; 84443; 84481; 85025

== ENCOUNTER → 2025-01-31 | Outpatient (CLI) | payer BC | END | disposition home or self-care (01) | LOC: LAB 07:20 | PROVIDERS: ATTEND Internal Medicine | DX: Z01.812 Encounter for preprocedural laboratory examination (principal) | CPT/HCPCS: 36415; 82565; 84520 ==

== ENCOUNTER → 2025-03-26 | Outpatient (CLI) | payer BC ==
[2025-03-26 12:45] LABS: Follicle Stimulating Hormone 9.82 IU/L (SEE BELOW); Free T4 (Free Thyroxine) 1.04 ng/dL (0.89-1.76); T3 Total 0.87 ng/mL (0.60-1.81)
[2025-03-26 12:46] LABS: Leuteinizing Hormone 9.4 IU/L; Prolactin 17.24 ng/mL (2.8-29.2)
[2025-03-27 05:08] LABS: Estradiol 60.9 pg/mL (.)
[2025-03-29 12:07] LABS: Free Testosterone(Direct) 0.6 pg/mL (0.0-4.2)
== END | disposition home or self-care (01) ==
LOC: LAB 11:26
PROVIDERS: ATTEND Obstetrics & Gynecology
DX: N95.1 Menopausal and female climacteric states (principal)
CPT/HCPCS: 36415; 82670; 83001; 83002; 84146; 84402; 84403; 84439; 84443; 84480

== ENCOUNTER 2025-08-25 08:22 | Outpatient (CLI) | payer BC ==
[2025-08-25 08:47] LABS: Hematocrit 35.9 % (36.0-46.0); Hemoglobin 11.5 g/dL (12.2-16.2); Mean Corpuscular Hemoglobin 25.0 pg (28.0-32.0); Mean Corpuscular Volume 77.9 fL (80.0-100.0); Nucleated Red Blood Cells % 0.0 %
[2025-08-25 08:52] LABS: Urine Protein, UAD Negative (Negative)
[2025-08-25 09:31] LABS: Alanine Aminotransferase 15 U/L (7-40); Albumin 4.3 g/dL (3.2-4.8); Alkaline Phosphatase 68 U/L (46-116); Anion Gap 9 (5-15); BUN/Creatinine Ratio 14.3 (10.0-20.0); Blood Urea Nitrogen 10 mg/dL (9-23); Calcium 8.8 mg/dL (8.7-10.4); Carbon Dioxide 27 mmol/L (20-31); Chloride 106 mmol/L (98-107); Cholesterol 196 mg/dL (< 200); Glucose 85 mg/dL (74-106); Potassium 4.0 mmol/L (3.5-5.1); Sodium 142 mmol/L (136-145); Total Protein 7.1 g/dL (5.7-8.2); Triglycerides 89 mg/dL (< 150)
[2025-08-25 09:32] LABS: Bilirubin, Total 0.6 mg/dL (0.2-1.0); HDL Cholesterol 50 mg/dL (40-59)
[2025-08-26 08:07] LABS: Immunoglobulin A 364 mg/dL (87-352); Immunoglobulin G, Serum 974 mg/dL (586-1602); Immunoglobulin M 55 mg/dL (26-217)
== END 2025-08-25 17:00 | disposition home or self-care (01) ==
LOC: LAB 08:22
PROVIDERS: ATTEND Internal Medicine
DX: I50.22 Chronic systolic (congestive) heart failure (principal); E55.9 Vitamin D deficiency, unspecified; G35.D Multiple sclerosis, unspecified; D80.9 Immunodeficiency with predominantly antibody defects, unspecified; Z51.81 Encounter for therapeutic drug level monitoring
CPT/HCPCS: 36415; 80053; 80061; 81001; 82306; 82784; 85025